=== PATIENT | female | born 2000 | race Caucasian/White ===

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

== ENCOUNTER 2019-12-04 17:43 | Emergency (ER) | payer OTHER ==
[2019-12-04 18:46] LABS: ABSOLUTE EOSINOPHILS # (AUTO) 0.2 10^3/uL (0.0-0.6); ABSOLUTE LYMPHOCYTES (AUTO) 3.3 10^3/uL (0.5-4.7); ABSOLUTE MONOCYTES (AUTO) 0.8 10^3/uL (0.1-1.4); ABSOLUTE NEUT (AUTO) 3.4 10^3/uL (1.7-8.2); BASOPHILS % (AUTO) 0.3 % (0-2); HEMATOCRIT 39.7 % (36.0-47.0); HEMOGLOBIN 13.1 g/dL (12.0-15.5); LYMPHOCYTES % (AUTO) 43.8 % (13-45); MEAN CORPUSCULAR HEMOGLOBIN 27.1 pg (27.0-33.4); MEAN CORPUSCULAR HGB CONC 33.1 g/dL (32.0-36.0); MEAN CORPUSCULAR VOLUME 82 fl (80-97); PLATELET COUNT 328 10^3/uL (150-450); RED BLOOD COUNT 4.84 10^6/uL (3.72-5.28); RED CELL DISTRIBUTION WIDTH 15.3 % (11.5-14.0); SEGMENTED NEUTROPHILS % (AUTO) 43.9 % (42-78); TOTAL CELLS COUNTED % (AUTO) 100 %; WHITE BLOOD COUNT 7.6 10^3/uL (4.0-10.5)
[2019-12-04 18:52] LABS: APPEARANCE,URINE CLEAR; BILIRUBIN,URINE NEGATIVE (NEGATIVE); COLOR,URINE YELLOW; GLUCOSE, URINE NEGATIVE (NEGATIVE); KETONES,URINE NEGATIVE (NEGATIVE); PROTEIN,URINE NEGATIVE (NEGATIVE); UROBILINOGEN,URINE NEGATIVE mg/dL (<2.0)
--- NOTE | 2019-12-04 19:52 | ER Document Report ---
HPI - HPI Patient complains to provider of: possible Pain Level: 2 Notes: 19-year-old female to the emergency department with complaint of possible presidency. She states that she feels like she has been having symptoms. She notes she is frequent urination, mild pelvic cramping, numbness and tingling, fatigue, and intermittent nausea. She states she has not vomited. Yet. She states to come on to her next menstrual cycle on 05 December. She has never been before. She is not been having any spotting. She denies any vomiting, diarrhea, back pain. She denies any burning with urination, chest pain, shortness of breath. She states she and her significant other are trying to get . She is not on any control. 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 [employer] states also wanted her to get an outpatient ultrasound but she has not gone back. She denies any other complaints. Patient did take an at home test and it was negative - ROS Systems Reviewed and Negative: Yes All other systems reviewed and negative - CONSTITUTIONAL Constitutional: DENIES: Fever, Chills - EENT EENT: DENIES: Sore Throat, Ear Pain, Congestion - NEURO Neurology: DENIES: Headache, Weakness - CARDIOVASCULAR Cardiovascular: DENIES: Chest pain - RESPIRATORY Respiratory: DENIES: Trouble Breathing, Coughing - GASTROINTESTINAL Gastrointestinal: REPORTS: Abdominal Pain - Intermittent pelvic cramping, Nausea. DENIES: Patient vomiting, Diarrhea - URINARY Urinary: REPORTS: Frequency. DENIES: Dysuria, Urgency - REPRODUCTIVE Reproductive: DENIES: Abnormal bleeding / discharge - DERM Skin Color: Normal Skin Problems: None Past Medical History - General Information source: Patient - Social History Smoking Status: Never Smoker Frequency of alcohol use: None Drug Abuse: None Family History: Reviewed & Not Pertinent Renal/ Medical History: Denies: Hx Peritoneal Dialysis Vertical Provider Document - CONSTITUTIONAL Agree With Documented VS: Yes General Appearance: WD/WN - INFECTION CONTROL TRAVEL OUTSIDE OF THE [place] IN LAST 30 DAYS: No - HEENT HEENT: Atraumatic, Normocephalic, PERRLA - NECK Neck: Normal Inspection, Supple - RESPIRATORY Respiratory: Breath Sounds Normal, No Respiratory Distress, Rales, Rhonchi, Wheezing - CARDIOVASCULAR Cardiovascular: Regular Rate, Regular Rhythm, No Murmur - GI/ABDOMEN Gastrointestinal: Abdomen Soft, Abdomen Non-Tender - MUSCULOSKELETAL/EXTREMETIES Musculoskeletal/Extremeties: JAMIL, FROM - NEURO Level of Consciousness: Awake, Alert, Appropriate - DERM Integumentary: Warm, Dry Course - Re-evaluation Re-evalutation: Impression: Negative test. Urinary frequency. Patient's lab work is very reassuring with negative total hCG. Urinalysis with no infection. Discussed results with patient and advised her to follow-up with her [employer]. She agrees with the plan. - Vital Signs Vital signs: Temp Pulse Resp BP Pulse Ox 98.3 F 53 L 20 122/59 L 100 12/04/19 17:59 12/04/19 17:59 12/04/19 17:59 12/04/19 17:59 12/04/19 17:59 - Laboratory Result Diagrams: 12/04/19 18:33 Laboratory results interpreted by me: 12/04/19 12/04/19 18:33 18:33 RDW 15.3 H Urine Ascorbic Acid 40 H 12/05/19 01:40 Laboratory 12/04/19 12/04/19 12/04/19 18:33 18:33 18:33 WBC 7.6 RBC 4.84 Hgb 13.1 Hct 39.7 MCV 82 MCH 27.1 MCHC 33.1 RDW 15.3 H Plt Count 328 Lymph % (Auto) 43.8 [place] % (Auto) 10.0 Eos % (Auto) 2.0 Baso % (Auto) 0.3 Absolute Neuts (auto) 3.4 Absolute Lymphs (auto) 3.3 Absolute Monos (auto) 0.8 Absolute Eos (auto) 0.2 Absolute Basos (auto) 0.0 Seg Neutrophils % 43.9 Beta HCG, Quant < 2.39 Total Beta HCG NEGATIVE Urine Color YELLOW Urine Appearance CLEAR Urine pH 6.0 Ur Specific [place] 1.020 Urine Protein NEGATIVE Urine Glucose (UA) NEGATIVE Urine Ketones NEGATIVE Urine Blood NEGATIVE Urine Nitrite (Reflex) NEGATIVE Urine Bilirubin NEGATIVE Urine Urobilinogen NEGATIVE Leukocyte Esterase Rfl NEGATIVE Urine RBC (Auto) 0 Urine Mucus (Auto) RARE Urine Ascorbic Acid 40 H Discharge - Discharge Clinical Impression: Negative test, Urinary frequency Condition: Stable Disposition: HOME, SELF-CARE Additional Instructions: Your test was negative today. Your lab work looks very reassuring. You do not have a urinary tract infection on urinalysis. [place] [employer] [place] Return if any worsening symptoms. Referrals: TIERNEY SENA MD [ACTIVE PROVISIONAL STAFF] - Follow up as needed (If not able to see [employer] [place])
[2019-12-04 20:10] VITALS: BP 130/73
== END 2019-12-04 20:15 | disposition home or self-care (01) ==
LOC: ER 17:43
DX: Z32.02 Encounter for pregnancy test, result negative (principal); R35.0 Frequency of micturition; R10.2 Pelvic and perineal pain; R20.0 Anesthesia of skin; R53.83 Other fatigue; R11.0 Nausea; R10.9 Unspecified abdominal pain
CPT/HCPCS: 36415; 81001; 84702; 85025; 99283